=== PATIENT | female | born 1955 | race African-American/Black ===

== ENCOUNTER 2018-01-06 15:08 | Emergency (ER) | payer MEDICAID ==
[~2018-01-06] VITALS: Ht 160 cm; Wt 104.5 kg
[~2018-01-06 15:08] MED LIST: ASPI-556 PO; CARV12 PO; LISI-662 PO; SIMV-260 PO
[2018-01-06] MEDS ORDERED: ATOR40TA28 PO (15:35)
[2018-01-06] MEDS ORDERED: CARV3 PO (15:35)
[2018-01-06] MEDS ORDERED: FURO20 PO (15:35)
[2018-01-06] MEDS ORDERED: VITAD1000 PO (15:35)
[2018-01-06] MEDS ORDERED: IPRATROPIUM BROMIDE 0.5 MG/2.5 ML NEB SOLUTION NEB ONE (16:00)
[2018-01-06] MEDS ORDERED: ALBUTEROL SULFATE 5 MG/ML 20 ML NEB SOLN [BULK] NEB ONE (16:00)
[2018-01-06 16:15] LABS: BASOPHILS % (AUTO) 0.8 % (0.0-2.0); HEMATOCRIT 38.8 % (36-46); LYMPHOCYTES % (AUTO) 45.4 % (22.0-44.0); MEAN CORPUSCULAR HEMOGLOBIN 28.9 pg (26.0-34.0); MEAN CORPUSCULAR HGB CONC 33.5 G/dL (31.0-37.0); MEAN CORPUSCULAR VOLUME 86 fL (80-100); MONOCYTES # (AUTO) 0.5 K/uL (0.1-1.0); MONOCYTES % (AUTO) 11.5 % (2.0-9.0); NEUTROPHILS # (AUTO) 0.9 K/uL (1.8-7.7); NEUTROPHILS % (AUTO) 20.9 % (40.0-70.0); PLATELET COUNT (AUTO) 262 K/uL (150-450); RED CELL DISTRIBUTION WIDTH 14.7 % (11.5-14.5)
[2018-01-06] MEDS ORDERED: DEXAMETHASONE SOD PHOS 4 MG/ML 5 ML VIAL IM ONE (16:15)
[2018-01-06] MEDS ORDERED: DEXAMETHASONE SOD PHOS 4 MG/ML 5 ML VIAL IVP ONE (16:15)
[2018-01-06 16:20] LABS: EOSINOPHILS % (AUTO) 21.4 % (1.0-6.0)
[2018-01-06 16:28] LABS: CALCIUM, TOTAL 8.6 mg/dL (8.8-10.5); CREATININE 1.15 mg/dL (0.60-1.30); POTASSIUM 3.7 mmol/L (3.5-5.1)
[2018-01-06 16:34] LABS: ALBUMIN 3.5 g/dL (3.4-5.0); BILIRUBIN,TOTAL 0.2 mg/dL (0.1-1.0); TOTAL PROTEIN, SERUM 7.1 g/dL (6.4-8.2)
[2018-01-06] MEDS ORDERED: ALBUTEROL SULFATE HFA 90 MCG/PUFF 8 GM INHALER IH ONE (17:00)
[2018-01-06 17:35] VITALS: BP 129/70
== END 2018-01-06 18:34 | disposition home or self-care (01) ==
LOC: EMS 15:09
DX: J44.1 Chronic obstructive pulmonary disease with (acute) exacerbation (principal); I10 Essential (primary) hypertension; E78.00 Pure hypercholesterolemia, unspecified; I25.2 Old myocardial infarction; I25.10 Atherosclerotic heart disease of native coronary artery without angina pectoris; F17.210 Nicotine dependence, cigarettes, uncomplicated
CPT/HCPCS: 36415; 71046; 80053; 83880; 84484; 85025; 93005; 94644; 96374; 99285; J1100; J7611; J3535

== ENCOUNTER 2018-03-16 18:04 | Emergency (ER) | payer MEDICAID ==
[~2018-03-16] VITALS: Ht 160 cm; Wt 102.7 kg
[~2018-03-16 18:04] MED LIST changes: +ATOR40TA28 PO; -CARV12 PO; +CARV3 PO; +FURO20 PO; -SIMV-260 PO; +VITAD1000 PO
[2018-03-16 19:07] LABS: BASOPHILS % (AUTO) 1.1 % (0.0-2.0); EOSINOPHILS % (AUTO) 2.6 % (1.0-6.0); HEMATOCRIT 37.9 % (36-46); HEMOGLOBIN 12.7 g/dL (12.0-16.0); LYMPHOCYTES # (AUTO) 1.2 K/uL (1.0-4.8); LYMPHOCYTES % (AUTO) 15.4 % (22.0-44.0); MEAN CORPUSCULAR HEMOGLOBIN 28.9 pg (26.0-34.0); MEAN CORPUSCULAR HGB CONC 33.5 G/dL (31.0-37.0); MEAN CORPUSCULAR VOLUME 86 fL (80-100); MONOCYTES # (AUTO) 0.4 K/uL (0.1-1.0); MONOCYTES % (AUTO) 5.2 % (2.0-9.0); NEUTROPHILS # (AUTO) 5.9 K/uL (1.8-7.7); NEUTROPHILS % (AUTO) 75.7 % (40.0-70.0); PLATELET COUNT (AUTO) 280 K/uL (150-450); RED CELL DISTRIBUTION WIDTH 14.9 % (11.5-14.5)
[2018-03-16 19:14] LABS: APPEARANCE,URINE CLEAR (CLEAR); BILIRUBIN,URINE NEGATIVE (NEGATIVE); GLUCOSE, URINE (UA) NEGATIVE (NEGATIVE); KETONES,URINE 15 mg/dL (NEGATIVE); LEUKOCYTE ESTERASE ,URINE NEGATIVE (NEGATIVE); NITRATE,URINE NEGATIVE (NEGATIVE); OCCULT BLOOD,URINE NEGATIVE (NEGATIVE); PH,URINE 6.5 (5.0-8.0); PROTEIN,URINE TRACE (NEGATIVE)
[2018-03-16 19:16] LABS: ANION GAP 10 mmol/L (8-16); CALCIUM, TOTAL 8.8 mg/dL (8.8-10.5); CARBON DIOXIDE 27 mmol/L (22-29); CHLORIDE 103 mmol/L (98-107); GLOMERULAR FILTR. RATE CALC > 60 mL/min (>60); GLUCOSE,RANDOM 128 mg/dL (70-110); POTASSIUM 3.5 mmol/L (3.5-5.1); SODIUM SERUM 140 mmol/L (136-145); UREA NITROGEN, BLOOD 18 mg/dL (7-18)
[2018-03-16 19:22] LABS: ALANINE AMINOTRANSFERASE 26 U/L (12-78); ALBUMIN 3.8 g/dL (3.4-5.0); ALKALINE PHOSPHATASE 116 U/L (46-116); ASPARTATE AMINOTRANSFERASE 22 U/L (15-37); BILIRUBIN,TOTAL 0.3 mg/dL (0.1-1.0); LIPASE 114 U/L (73-393); TOTAL PROTEIN, SERUM 7.5 g/dL (6.4-8.2)
[2018-03-16] MEDS ORDERED: MORPHINE SULFATE 4 MG/ML SYRINGE IVP ONE ×2 (20:45→23:15)
[2018-03-16] MEDS ORDERED: KETOROLAC TROMETHAMINE 30 MG/ML VIAL IVP ONE (20:45)
[2018-03-16] MEDS ORDERED: BARIUM SULFATE 0.1% SUSPENSION 450 ML BOTTLE PO ONE (20:45)
[2018-03-16] MEDS ORDERED: ONDANSETRON HCL 4 MG/2 ML VIAL IVP ONE (20:45)
[2018-03-16] MEDS ORDERED: IOVERSOL 350 MG/ML 150 ML VIAL ONE (21:38)
[2018-03-16] MEDS ORDERED: SODIUM CHLORIDE 0.9% 100 ML ONE (21:39)
[2018-03-16] MEDS ORDERED: HEPARIN SODIUM 25000 UNITS/D5W 250 ML IV PRN (23:22)
[2018-03-16] MEDS ORDERED: HEPARIN SODIUM,PORCINE 5,000 UNITS/ML VIAL IVP ONE (23:30)
[2018-03-16] MEDS ORDERED: HEPARIN SODIUM,PORCINE 5,000 UNITS/ML VIAL IVP PRN ×2 (23:30)
[2018-03-16 23:45] LABS: BASOPHILS % (AUTO) 1.2 % (0.0-2.0); EOSINOPHILS % (AUTO) 0.3 % (1.0-6.0); HEMATOCRIT 36.9 % (36-46); HEMOGLOBIN 12.7 g/dL (12.0-16.0); LYMPHOCYTES # (AUTO) 1.1 K/uL (1.0-4.8); LYMPHOCYTES % (AUTO) 15.1 % (22.0-44.0); MEAN CORPUSCULAR HEMOGLOBIN 29.3 pg (26.0-34.0); MEAN CORPUSCULAR HGB CONC 34.4 G/dL (31.0-37.0); MEAN CORPUSCULAR VOLUME 85 fL (80-100); MONOCYTES # (AUTO) 0.3 K/uL (0.1-1.0); MONOCYTES % (AUTO) 4.1 % (2.0-9.0); NEUTROPHILS # (AUTO) 5.9 K/uL (1.8-7.7); NEUTROPHILS % (AUTO) 79.3 % (40.0-70.0); PLATELET COUNT (AUTO) 278 K/uL (150-450); RED BLOOD CELL COUNT(AUTO) 4.35 MIL/uL (4.00-5.20); RED CELL DISTRIBUTION WIDTH 14.8 % (11.5-14.5)
[2018-03-16 23:57] LABS: INR 1.6 (0.9-1.1); PROTHROMBIN TIME 16.7 SEC (9.4-11.6)
[2018-03-17 01:05] VITALS: BP 143/79
== END 2018-03-17 02:55 | disposition short-term general hospital (02) ==
LOC: EMS 18:05
DX: R10.9 Unspecified abdominal pain (principal); N28.0 Ischemia and infarction of kidney; F17.210 Nicotine dependence, cigarettes, uncomplicated; I10 Essential (primary) hypertension; I25.2 Old myocardial infarction; R19.7 Diarrhea, unspecified; R11.2 Nausea with vomiting, unspecified; E78.00 Pure hypercholesterolemia, unspecified; Z79.899 Other long term (current) drug therapy; Z79.82 Long term (current) use of aspirin
CPT/HCPCS: 36415; 74177; 80053; 81003; 83690; 84484; 85025; 85610; 85730; 93005; 96365; 96374; 96375; 96376; 99291; J1644 ×2; J1885; J2270; J2405; J7050; Q9967; Z7610

== ENCOUNTER → 2018-11-05 | Outpatient (CLI) | payer MEDICAID | END | disposition home or self-care (01) | LOC: RADPV 09:10 | PROVIDERS: ATTEND Hospitalist | DX: N28.0 Ischemia and infarction of kidney (principal); J44.9 Chronic obstructive pulmonary disease, unspecified; I10 Essential (primary) hypertension; E78.00 Pure hypercholesterolemia, unspecified; Z79.899 Other long term (current) drug therapy | CPT/HCPCS: 76770 ==

== ENCOUNTER 2021-01-09 02:14 | Emergency (ER) | payer MEDICAID ==
[~2021-01-09] VITALS: Ht 160 cm; Wt 90.9 kg
[~2021-01-09 02:14] MED LIST changes: +AMLO2.5T96 PO; -ATOR40TA28 PO; +ATOR40TA71 PO; +BECL10.62 IH; +CHOL100044 PO; +IPRA4AER IH; +ISOS30TA92 PO; -LISI-662 PO; +MONT-35 PO; +OMEG10005 PO; +OMEP20 PO; -VITAD1000 PO
[2021-01-09] MEDS ORDERED: MORPHINE SULFATE 4 MG/ML SYRINGE IVP ONE ×2 (02:45→05:45)
[2021-01-09] MEDS ORDERED: CYCLOBENZAPRINE HCL 10 MG TABLET PO ONE (02:45)
[2021-01-09 05:35] VITALS: BP 162/83
[2021-01-09] MEDS ORDERED: MORPHINE SULFATE 2 MG/ML SYRINGE IVP ONE (05:45)
== END 2021-01-09 05:55 | disposition home or self-care (01) ==
LOC: EMS 02:17
DX: M54.41 Lumbago with sciatica, right side (principal); I25.10 Atherosclerotic heart disease of native coronary artery without angina pectoris; I11.0 Hypertensive heart disease with heart failure; I50.9 Heart failure, unspecified; J44.9 Chronic obstructive pulmonary disease, unspecified; E78.00 Pure hypercholesterolemia, unspecified; I25.2 Old myocardial infarction; F17.210 Nicotine dependence, cigarettes, uncomplicated; Z90.89 Acquired absence of other organs; Z90.710 Acquired absence of both cervix and uterus; Z79.899 Other long term (current) drug therapy; Z79.82 Long term (current) use of aspirin
CPT/HCPCS: 72100; 96374; 96376; 99284; J2270 ×2

== ENCOUNTER 2021-08-02 17:48 | Emergency (ER) | payer MEDICARE, MEDICAID ==
[~2021-08-02] VITALS: Ht 160 cm; Wt 93.2 kg
[~2021-08-02 17:48] MED LIST changes: +CHOL-35 PO; -CHOL100044 PO
[2021-08-02] MEDS ORDERED: TraMADol HCL 50 MG TABLET PO ONE (18:45)
[2021-08-02 21:21] VITALS: BP 144/79
== END 2021-08-02 21:34 | disposition home or self-care (01) ==
LOC: EMS 17:48
DX: M79.604 Pain in right leg (principal); M79.89 Other specified soft tissue disorders; I25.10 Atherosclerotic heart disease of native coronary artery without angina pectoris; I11.0 Hypertensive heart disease with heart failure; I50.9 Heart failure, unspecified; J44.9 Chronic obstructive pulmonary disease, unspecified; E78.00 Pure hypercholesterolemia, unspecified; F17.210 Nicotine dependence, cigarettes, uncomplicated; Z90.710 Acquired absence of both cervix and uterus; Z90.89 Acquired absence of other organs; Z79.899 Other long term (current) drug therapy; Z79.82 Long term (current) use of aspirin
CPT/HCPCS: 93971; 99284; 73590-TC; 73610-TC; Z7502; Z7610

== ENCOUNTER 2021-09-14 16:20 | Emergency (ER) | payer MEDICARE, MEDICAID ==
[~2021-09-14] VITALS: Ht 160 cm; Wt 88.6 kg
[2021-09-14 18:46] LABS: COVID AG,FIA SOURCE NASOPHARYNGEAL
[2021-09-14 18:47] VITALS: BP 157/76
[2021-09-14 19:08] LABS: INFLUENZA TYPE A NEGATIVE FOR TYPE A (NEGATIVE); INFLUENZA TYPE B NEGATIVE FOR TYPE B (NEGATIVE)
[2021-09-14] MEDS: ALBUTEROL SULFATE HFA 90 MCG/PUFF 8 GM INHALER IH ONE (20:11)
== END 2021-09-14 20:22 | disposition home or self-care (01) ==
LOC: EMS 16:34
DX: J40 Bronchitis, not specified as acute or chronic (principal); I11.0 Hypertensive heart disease with heart failure; I50.9 Heart failure, unspecified; E78.00 Pure hypercholesterolemia, unspecified; I25.10 Atherosclerotic heart disease of native coronary artery without angina pectoris; I25.2 Old myocardial infarction; F17.210 Nicotine dependence, cigarettes, uncomplicated; Z79.899 Other long term (current) drug therapy; Z20.822 Contact with and (suspected) exposure to COVID-19
CPT/HCPCS: 71045; 87426; 87804; 94640; 99284; U0003; J3535

== ENCOUNTER 2023-10-10 13:42 | Emergency (ER) | payer OTHER ==
[~2023-10-10] VITALS: Ht 160 cm; Wt 90.9 kg
[~2023-10-10 13:42] MED LIST changes: -CHOL-35 PO; +CHOL25TA4 PO
[2023-10-10 13:48] VITALS: TEMP 98.6
[2023-10-10] MEDS ORDERED: ACETAMINOPHEN 500 MG TABLET PO ONE (15:00)
[2023-10-10] MEDS ORDERED: POLYMYXIN B/TRIMETHOPRIM 10 ML OPHTHALMIC SOLUTION OD ONE (15:00)
[2023-10-10 15:12] LABS: BASOPHILS % (AUTO) 1.3 % (0.0-2.0); EOSINOPHILS % (AUTO) 3.8 % (1.0-6.0); HEMATOCRIT 35.6 % (36-46); HEMOGLOBIN 11.9 g/dL (12.0-16.0); LYMPHOCYTES % (AUTO) 32.1 % (22.0-44.0); MEAN CORPUSCULAR HEMOGLOBIN 29.1 pg (26.0-34.0); MEAN CORPUSCULAR HGB CONC 33.5 G/dL (31.0-37.0); MEAN CORPUSCULAR VOLUME 87 fL (80-100); MONOCYTES # (AUTO) 0.6 K/uL (0.1-1.0); MONOCYTES % (AUTO) 10.5 % (2.0-9.0); NEUTROPHILS # (AUTO) 3.2 K/uL (1.8-7.7); NEUTROPHILS % (AUTO) 52.3 % (40.0-70.0); PLATELET COUNT (AUTO) 349 K/uL (150-450); RED BLOOD CELL COUNT(AUTO) 4.09 MIL/uL (4.00-5.20); RED CELL DISTRIBUTION WIDTH 16.1 % (11.5-14.5); WHITE BLOOD COUNT (AUTO) 6.1 K/uL (4.5-11.0)
[2023-10-10 15:22] LABS: ANION GAP 10 mmol/L (8-16); CALCIUM, TOTAL 9.2 mg/dL (8.8-10.5); CARBON DIOXIDE 29 mmol/L (22-29); CHLORIDE 105 mmol/L (98-107); CREATININE 1.08 mg/dL (0.60-1.30); GLOMERULAR FILTR. RATE CALC > 60 mL/min (>60); GLUCOSE,RANDOM 94 mg/dL (70-110); POTASSIUM 3.6 mmol/L (3.5-5.1); SODIUM SERUM 144 mmol/L (136-145); UREA NITROGEN, BLOOD 20 mg/dL (7-18)
[2023-10-10 15:25] LABS: APPEARANCE,URINE TURBID (CLEAR); BILIRUBIN,URINE NEGATIVE (NEGATIVE); COLOR,URINE YELLOW (YELLOW); GLUCOSE, URINE (UA) NEGATIVE (NEGATIVE); KETONES,URINE NEGATIVE (NEGATIVE); LEUKOCYTE ESTERASE ,URINE LARGE (NEGATIVE); NITRATE,URINE NEGATIVE (NEGATIVE); OCCULT BLOOD,URINE SMALL (NEGATIVE); PROTEIN,URINE 100-200,SEE CONFIRM mg/dL (NEGATIVE); SPECIFIC GRAVITIY, URINE 1.026 (1.003-1.030); UROBILINOGEN,URINE <=1.0 mg/dL (<=1.0)
[2023-10-10 15:29] LABS: BACTERIA,URINE Few /HPF (None Seen); SQUAMOUS EPITHELIAL CELL,UR Few /LPF (None Seen); SULFOSALICYLIC ACID,URINE 2+ (Negative); WBC,URINE 51-100 /HPF (0-5)
[2023-10-10 15:29] LABS: ALANINE AMINOTRANSFERASE 18 U/L (12-78); ALBUMIN 3.6 g/dL (3.4-5.0); ALKALINE PHOSPHATASE 107 U/L (46-116); ASPARTATE AMINOTRANSFERASE 17 U/L (15-37); BILIRUBIN,TOTAL 0.2 mg/dL (0.1-1.0)
[2023-10-10] MEDS ORDERED: CEPH-558 PO (15:35)
[2023-10-10] MEDS ORDERED: ACET-3385 PO (15:35)
[2023-10-10] MEDS ORDERED: CEPHALEXIN MONOHYDRATE 500 MG CAPSULE PO ONE (15:45)
[2023-10-10 15:56] VITALS: BP 141/70; PULSE 66; RESP 16
== END 2023-10-10 16:27 | disposition home or self-care (01) ==
LOC: EMS 13:42
DX: N12 Tubulo-interstitial nephritis, not specified as acute or chronic (principal); H10.9 Unspecified conjunctivitis; J44.9 Chronic obstructive pulmonary disease, unspecified; E78.00 Pure hypercholesterolemia, unspecified; F17.210 Nicotine dependence, cigarettes, uncomplicated; I25.10 Atherosclerotic heart disease of native coronary artery without angina pectoris; I11.0 Hypertensive heart disease with heart failure; Z90.49 Acquired absence of other specified parts of digestive tract; Z90.710 Acquired absence of both cervix and uterus; Z98.890 Other specified postprocedural states
CPT/HCPCS: 80053; 81001; 81002; 85025; 87086; 87186; 99284

== ENCOUNTER 2024-07-18 05:45 | Day surgery (SDC) | payer MEDICARE, OTHER ==
[~2024-07-18] VITALS: Ht 162.6 cm; Wt 90.9 kg
[2024-07-18] VITALS (11 sets, daily range): BP systolic 110–174; BP diastolic 63–78; PULSE 44–64
[~2024-07-18 05:45] MED LIST changes: +ACET-3862 PO; -AMLO2.5T96 PO; +AMLO5TAB66 PO; +ASPI-1198 PO; -ASPI-556 PO; -ATOR40TA71 PO; -BECL10.62 IH; -CARV3 PO; +CHOL200074 PO; -CHOL25TA4 PO; +EZET10TA57 PO; -FURO20 PO; +GABA-1181 PO; -IPRA4AER IH; -ISOS30TA92 PO; +LOSA-382 PO; +METO25TA6 PO; -MONT-35 PO; +NITR0.4T50 SL; +NITR0.4T52 SL; -OMEG10005 PO; -OMEP20 PO; +SIMV-43 PO; +SODIUM CHLORIDE 0.9% 1,000 ML ONE; +TRAZ-252 PO
[2024-07-18 06:13] LABS: BASOPHILS % (AUTO) 0.9 % (0.0-2.0); EOSINOPHILS % (AUTO) 2.6 % (1.0-6.0); HEMATOCRIT 41.9 % (36-46); HEMOGLOBIN 13.8 g/dL (12.0-16.0); LYMPHOCYTES # (AUTO) 2.1 K/uL (1.0-4.8); LYMPHOCYTES % (AUTO) 29.7 % (22.0-44.0); MEAN CORPUSCULAR HEMOGLOBIN 29.3 pg (26.0-34.0); MEAN CORPUSCULAR HGB CONC 32.9 G/dL (31.0-37.0); MEAN CORPUSCULAR VOLUME 89 fL (80-100); MONOCYTES # (AUTO) 0.6 K/uL (0.1-1.0); MONOCYTES % (AUTO) 8.5 % (2.0-9.0); NEUTROPHILS # (AUTO) 4.2 K/uL (1.8-7.7); NEUTROPHILS % (AUTO) 58.3 % (40.0-70.0); PLATELET COUNT (AUTO) 310 K/uL (150-450); RED BLOOD CELL COUNT(AUTO) 4.72 MIL/uL (4.00-5.20); RED CELL DISTRIBUTION WIDTH 16.3 % (11.5-14.5); WHITE BLOOD COUNT (AUTO) 7.2 K/uL (4.5-11.0)
[2024-07-18 06:25] LABS: CREATININE 1.12 mg/dL (0.60-1.30); POTASSIUM 3.9 mmol/L (3.5-5.1)
[2024-07-18 06:26] LABS: CALCIUM, TOTAL 9.6 mg/dL (8.8-10.5)
[2024-07-18 06:30] LABS: PROTHROMBIN TIME 10.4 SEC (9.4-11.6)
[2024-07-18 06:31] LABS: ALBUMIN 3.8 g/dL (3.4-5.0); BILIRUBIN,TOTAL 0.4 mg/dL (0.1-1.0); TOTAL PROTEIN, SERUM 7.7 g/dL (6.4-8.2)
[2024-07-18] MEDS: SODIUM CHLORIDE 0.9% 1,000 ML IV ONE (06:39)
[2024-07-18] MEDS ORDERED: VERAPAMIL HCL 2.5 MG/ML 2 ML VIAL ONE (06:59)
[2024-07-18] MEDS ORDERED: IOHEXOL 300 MG/ML 100 ML VIAL ONE (06:59)
[2024-07-18] MEDS ORDERED: LIDOCAINE/PF 1% 30 ML VIAL ONE (06:59)
[2024-07-18] MEDS ORDERED: HEPARIN SODIUM 1000 UNITS/NS 1,000 ML ONE (06:59)
[2024-07-18] MEDS ORDERED: NITROGLYCERIN 50 MG/D5% WATER 250 ML ONE (06:59)
[2024-07-18] MEDS ORDERED: SODIUM BICARBONATE 50 MEQ/50 ML VIAL ONE (06:59)
[2024-07-18] MEDS ORDERED: FentaNYL CITRATE PF 100 MCG/2 ML VIAL ONE (07:49)
[2024-07-18] MEDS ORDERED: MIDAZOLAM HCL 2 MG/2 ML VIAL ONE (07:49)
[2024-07-18] MEDS: HEPARIN SODIUM,PORCINE 1,000 UNITS/ML 10 ML VIAL IARTER ONE (08:09)
[2024-07-18] MEDS: HEPARIN SODIUM 1000 UNITS/NS 1,000 ML IARTER ONE (08:09)
[2024-07-18] MEDS: NITROGLYCERIN/D5W 50 MG/250 ML IV BOTTLE IARTER ONE (08:10)
[2024-07-18] MEDS: IOHEXOL 300 MG/ML 100 ML VIAL IARTER ONE (08:10)
[2024-07-18] MEDS: FentaNYL CITRATE PF 100 MCG/2 ML VIAL IVP ONE ×2 (08:11→08:18)
[2024-07-18] MEDS: MIDAZOLAM HCL 2 MG/2 ML VIAL IVP ONE ×2 (08:11→08:18)
[2024-07-18] MEDS: LIDOCAINE 1% 30 ML/SOD BICARB 8.4% 4 ML SQ ONE (08:12)
== END 2024-07-18 12:30 | disposition home or self-care (01) ==
LOC: CATHLAB 05:45
PROVIDERS: ATTEND Internal Medicine
DX: I25.119 Atherosclerotic heart disease of native coronary artery with unspecified angina pectoris (principal); R94.31 Abnormal electrocardiogram [ECG] [EKG]; I10 Essential (primary) hypertension; E11.9 Type 2 diabetes mellitus without complications; J44.9 Chronic obstructive pulmonary disease, unspecified; I25.2 Old myocardial infarction; Z86.73 Personal history of transient ischemic attack (TIA), and cerebral infarction without residual deficits; Z79.82 Long term (current) use of aspirin; Z79.899 Other long term (current) drug therapy; Z90.49 Acquired absence of other specified parts of digestive tract; Z90.710 Acquired absence of both cervix and uterus; Z98.818 Other dental procedure status; Z98.890 Other specified postprocedural states; Z82.49 Family history of ischemic heart disease and other diseases of the circulatory system
CPT/HCPCS: 93458; 80053; 85025; 85610; 85730; 36415; 99152; 93005; J3010; J1644; J3490 ×4; J2250; J7030; Q9967

== ENCOUNTER 2025-07-26 13:42 | Inpatient (IN) | payer MEDICARE, OTHER ==
[~2025-07-26] VITALS: Ht 160 cm; Wt 99.6 kg
[~2025-07-26 13:42] MED LIST changes: -NITR0.4T52 SL; -SODIUM CHLORIDE 0.9% 1,000 ML ONE
[2025-07-26] MEDS ORDERED: FLUT1BLS3 IH (14:02)
[2025-07-26] MEDS ORDERED: ROSU20TA98 PO (14:02)
[2025-07-26] MEDS ORDERED: CHOL25TA4 PO (14:02)
[2025-07-26] MEDS ORDERED: LOSA-381 PO (14:02)
[2025-07-26 14:24] LABS: PLATELET COUNT (AUTO) 246 K/uL (150-450); RED BLOOD CELL COUNT(AUTO) 4.69 MIL/uL (4.00-5.20); RED CELL DISTRIBUTION WIDTH 15.6 % (11.5-14.5); WHITE BLOOD COUNT (AUTO) 6.3 K/uL (4.5-11.0)
[2025-07-26 14:37] LABS: CALCIUM, TOTAL 9.2 mg/dL (8.8-10.5); CREATININE 1.83 mg/dL (0.60-1.30); GLOMERULAR FILTR. RATE CALC 33 mL/min (>60); GLUCOSE,RANDOM 130 mg/dL (70-110); SODIUM SERUM 139 mmol/L (136-145); UREA NITROGEN, BLOOD 20 mg/dL (7-18)
[2025-07-26 14:45] LABS: TROPONIN I-HIGH SENSITIVITY 21 ng/L (<51)
[2025-07-26 15:41] LABS: APPEARANCE,URINE CLEAR (CLEAR); GLUCOSE, URINE (UA) NEGATIVE (NEGATIVE); LEUKOCYTE ESTERASE ,URINE SMALL (NEGATIVE); NITRATE,URINE NEGATIVE (NEGATIVE); OCCULT BLOOD,URINE NEGATIVE (NEGATIVE); SPECIFIC GRAVITIY, URINE 1.012 (1.003-1.030)
[2025-07-26] MEDS: SODIUM CHLORIDE 0.9% 1,000 ML IV ONE ×2 (15:45→23:48)
[2025-07-26 15:46] LABS: SQUAMOUS EPITHELIAL CELL,UR Few /LPF (None Seen)
[2025-07-26 15:47] LABS: ASPARTATE AMINOTRANSFERASE 24.0 U/L (15-37); TOTAL PROTEIN, SERUM 7.3 g/dL (6.4-8.2)
[2025-07-26] MEDS: MORPHINE SULFATE 2 MG/ML SYRINGE IVP ONE (15:47)
[2025-07-26] MEDS: CIPROFLOXACIN 400 MG/D5% WATER 200 ML IV ONE (18:12)
[2025-07-26] MEDS: MetroNIDAZOLE 500 MG/NACL 100 ML IV ONE (18:12)
[2025-07-26 18:26] LABS: LACTIC ACID 0.9 mmol/L (0.4-2.0)
[2025-07-26] MEDS ORDERED: BISACODYL 10 MG RECTAL RECTAL SUPPOSITORY PR PRN (20:45)
[2025-07-26] MEDS ORDERED: MAGNESIUM HYDROXIDE SUSPENSION 30 ML UDCUP PO PRN (20:45)
[2025-07-26] MEDS ORDERED: ACETAMINOPHEN 325 MG TABLET PO PRN (20:45)
[2025-07-26] MEDS ORDERED: ONDANSETRON HCL 4 MG/2 ML VIAL IVP PRN (20:45)
[2025-07-26] MEDS: DOCUSATE SODIUM 100 MG CAPSULE PO SCH (21:00)
[2025-07-26 21:34] VITALS: BP 157/74; PULSE 53; RESP 19; TEMP 98.4; O2SAT 95
[2025-07-26] MEDS: MORPHINE SULFATE 4 MG/ML SYRINGE IVP PRN (21:50)
[2025-07-26] MEDS: HYDROCODONE/ACETAMINOPHEN 5-325 MG TABLET PO PRN (23:48)
[2025-07-26 23:49] VITALS: PULSE 52; RESP 20; TEMP 98.2; O2SAT 97
[2025-07-26] MEDS: HEPARIN SODIUM,PORCINE 5,000 UNITS/ML VIAL SQ SCH (23:49)
[2025-07-27] VITALS (12 sets, daily range): BP systolic 117–180; BP diastolic 55–82; PULSE 46–77; RESP 16–19; TEMP 98–99.3; O2SAT 92–100
[2025-07-27] MEDS: PIPERACILLIN SODIUM/TAZOBACTAM 2.25 GM in DEXTROSE 5%-WATER 50 ML IV SCH (02:33)
[2025-07-27] MEDS: METOPROLOL TARTRATE 25 MG TABLET PO SCH (09:00)
[2025-07-27] MEDS ORDERED: MISC MED-CONVERTED FROM AMBULATORY (Fluticasone/Umeclidin/Vilanter (Trelegy Ellipta 100-62 IH SCH (09:00)
[2025-07-27] MEDS: ASPIRIN 81 MG CHEWABLE TABLET PO SCH (09:04)
[2025-07-27] MEDS: CHOLECALCIFEROL (VIT D3) 1,000 UNITS [25 MCG] TABLET PO SCH (09:04)
[2025-07-27] MEDS: PANTOPRAZOLE SODIUM 40 MG DR TABLET PO SCH (09:04)
[2025-07-27] MEDS: EZETIMIBE 10 MG TABLET PO SCH (09:51)
[2025-07-27 10:11] LABS: PLATELET COUNT (AUTO) 221 K/uL (150-450); RED BLOOD CELL COUNT(AUTO) 4.93 MIL/uL (4.00-5.20); RED CELL DISTRIBUTION WIDTH 15.6 % (11.5-14.5); WHITE BLOOD COUNT (AUTO) 11.5 K/uL (4.5-11.0)
[2025-07-27] MEDS ORDERED: LOSA-382 PO (12:11)
[2025-07-27 16:03] LABS: CALCIUM, TOTAL 8.7 mg/dL (8.8-10.5); CREATININE 2.23 mg/dL (0.60-1.30); GLOMERULAR FILTR. RATE CALC 26.0 mL/min (>60); GLUCOSE,RANDOM 108.0 mg/dL (70-110); SODIUM SERUM 141.0 mmol/L (136-145); UREA NITROGEN, BLOOD 17.0 mg/dL (7-18)
[2025-07-27] MEDS: DEXTROSE 5%-0.45% SODIUM CHL 1,000 ML IV ONE (17:26)
[2025-07-27] MEDS: SIMVASTATIN 20 MG TABLET PO SCH (20:47)
[2025-07-28] VITALS (8 sets, daily range): BP systolic 123–153; BP diastolic 51–85; PULSE 71–81; RESP 16–19; TEMP 98–99.9; O2SAT 95–98
[2025-07-28] MEDS: METOPROLOL TARTRATE 25 MG TABLET PO SCH (08:16)
[2025-07-28 08:34] LABS: PLATELET COUNT (AUTO) 223 K/uL (150-450); RED BLOOD CELL COUNT(AUTO) 4.74 MIL/uL (4.00-5.20); RED CELL DISTRIBUTION WIDTH 15.6 % (11.5-14.5); WHITE BLOOD COUNT (AUTO) 17.5 K/uL (4.5-11.0)
[2025-07-28 08:40] LABS: CALCIUM, TOTAL 8.7 mg/dL (8.8-10.5); CREATININE 2.58 mg/dL (0.60-1.30); GLOMERULAR FILTR. RATE CALC 22.0 mL/min (>60); GLUCOSE,RANDOM 113.0 mg/dL (70-110); SODIUM SERUM 137.0 mmol/L (136-145); UREA NITROGEN, BLOOD 19.0 mg/dL (7-18)
[2025-07-28] MEDS: SODIUM CHLORIDE 0.9% 1,000 ML IV ONE (12:28)
[2025-07-28] MEDS: CLOPIDOGREL BISULFATE 75 MG TABLET PO SCH (18:28)
[2025-07-29 03:22] VITALS: BP 122/79; PULSE 71; RESP 18; TEMP 98.6; O2SAT 95
[2025-07-29 08:27] VITALS: BP 142/83; PULSE 79; RESP 18; TEMP 99.7; O2SAT 96
[2025-07-29 12:27] VITALS: BP 127/71; PULSE 69; RESP 18; TEMP 97.3; O2SAT 96
[2025-07-29 15:38] VITALS: BP 137/67; PULSE 68; RESP 19; TEMP 99.3; O2SAT 100
[2025-07-29] MEDS: DEXTROSE 5%-LACTATED RINGERS 1,000 ML IV ONE (15:57)
[2025-07-29] MEDS ORDERED: IOHEXOL 350 MG/ML 100 ML VIAL ONE (16:57)
[2025-07-29] MEDS ORDERED: SODIUM CHLORIDE 0.9% 100 ML ONE (16:57)
[2025-07-29] MEDS ORDERED: 0.9% SODIUM CHLORIDE 10 ML SYRINGE IVP ONE (16:58)
[2025-07-29 19:32] VITALS: BP 141/76; PULSE 69; RESP 19; TEMP 99.3; O2SAT 100
[2025-07-29] MEDS: ACETYLCYSTEINE 20% 200 MG/ML 4 ML ORAL SOLUTION PO SCH (21:25)
[2025-07-29 23:30] VITALS: BP 126/68; PULSE 67; RESP 18; TEMP 98.8; O2SAT 95
[2025-07-30 04:43] VITALS: BP 146/74; PULSE 52; RESP 18; TEMP 99; O2SAT 98
[2025-07-30 08:21] LABS: PLATELET COUNT (AUTO) 214 K/uL (150-450); RED BLOOD CELL COUNT(AUTO) 4.00 MIL/uL (4.00-5.20); RED CELL DISTRIBUTION WIDTH 15.0 % (11.5-14.5); WHITE BLOOD COUNT (AUTO) 12.2 K/uL (4.5-11.0)
[2025-07-30 08:32] LABS: CALCIUM, TOTAL 8.3 mg/dL (8.8-10.5); CREATININE 2.65 mg/dL (0.60-1.30); GLOMERULAR FILTR. RATE CALC 22.0 mL/min (>60); GLUCOSE,RANDOM 120.0 mg/dL (70-110); SODIUM SERUM 136.0 mmol/L (136-145); UREA NITROGEN, BLOOD 23.0 mg/dL (7-18)
[2025-07-30 08:33] VITALS: BP 135/70; PULSE 60; RESP 17; TEMP 98.8; O2SAT 97
[2025-07-30 08:36] LABS: ASPARTATE AMINOTRANSFERASE 40.0 U/L (15-37); TOTAL PROTEIN, SERUM 6.2 g/dL (6.4-8.2)
[2025-07-30] MEDS: APIXABAN 5 MG TABLET PO SCH (10:16)
[2025-07-30] MEDS: POTASSIUM CHLORIDE 20 MEQ ER TABLET PO ONE (10:49)
[2025-07-30 12:08] VITALS: BP 111/55; PULSE 52; RESP 16; TEMP 98.6; O2SAT 97
[2025-07-30] MEDS ORDERED: DEXTROSE 50%-WATER 25 GM/50 ML SYRINGE IVP PRN (13:00)
[2025-07-30 16:08] VITALS: BP 111/87; PULSE 48; RESP 18; TEMP 98.2; O2SAT 97
[2025-07-30] MEDS: INSULIN LISPRO 100 UNITS/ML SQ PRN (17:37)
[2025-07-30 19:00] LABS: GLUCOMETER DEV NAME(LOC) 5S.1E; GLUCOSE,POINT OF CARE 143 MG/DL (70-110)
[2025-07-30 21:00] VITALS: BP 137/58; PULSE 65; RESP 18; TEMP 98.8; O2SAT 98
[2025-07-30] MEDS: ZOLPIDEM TARTRATE 5 MG TABLET PO PRN (21:34)
[2025-07-30] MEDS: POTASSIUM CHLORIDE 10 MEQ ER TABLET PO ONE (22:59)
[2025-07-31 04:00] VITALS: BP 133/62; PULSE 68; RESP 18; TEMP 98.4; O2SAT 97
[2025-07-31 07:30] LABS: CALCIUM, TOTAL 8.7 mg/dL (8.8-10.5); CREATININE 2.92 mg/dL (0.60-1.30); GLOMERULAR FILTR. RATE CALC 19.0 mL/min (>60); GLUCOSE,RANDOM 114.0 mg/dL (70-110); SODIUM SERUM 139.0 mmol/L (136-145); UREA NITROGEN, BLOOD 22.0 mg/dL (7-18)
[2025-07-31 08:18] VITALS: BP 132/77; PULSE 69; RESP 17; TEMP 97.7; O2SAT 98
[2025-07-31] MEDS ORDERED: APIX5TAB PO (11:17)
[2025-07-31] MEDS ORDERED: AMLO-258 PO (11:17)
[2025-07-31] MEDS ORDERED: METO25 PO (11:21)
== END 2025-07-31 13:00 | disposition home or self-care (01) | DRG 391 ==
LOC: EMS 13:42 → EDH 16:29 → CMPBEDREQ 20:06 → 5S 21:32 → 4E 07-30 20:51
PROVIDERS: ADMIT Internal Medicine; ATTEND Internal Medicine
PROC: 05HD33Z Insertion of Infusion Device into Right Cephalic Vein, Percutaneous Approach (ICD-10-PCS; principal; 2025-07-29)
PROC: B54MZZA Ultrasonography of Right Upper Extremity Veins, Guidance (ICD-10-PCS; 2025-07-29)
DX: K57.32 Diverticulitis of large intestine without perforation or abscess without bleeding (principal); N17.0 Acute kidney failure with tubular necrosis; R65.11 Systemic inflammatory response syndrome (SIRS) of non-infectious origin with acute organ dysfunction; I13.0 Hypertensive heart and chronic kidney disease with heart failure and stage 1 through stage 4 chronic kidney disease, or unspecified chronic kidney disease; N18.4 Chronic kidney disease, stage 4 (severe); E11.8 Type 2 diabetes mellitus with unspecified complications; E66.9 Obesity, unspecified; J44.9 Chronic obstructive pulmonary disease, unspecified; E11.22 Type 2 diabetes mellitus with diabetic chronic kidney disease; E78.00 Pure hypercholesterolemia, unspecified; I25.10 Atherosclerotic heart disease of native coronary artery without angina pectoris; I25.2 Old myocardial infarction; Z90.710 Acquired absence of both cervix and uterus; Z90.49 Acquired absence of other specified parts of digestive tract; Z87.891 Personal history of nicotine dependence; Z68.38 Body mass index [BMI] 38.0-38.9, adult; Z79.82 Long term (current) use of aspirin; Z79.899 Other long term (current) drug therapy
CPT/HCPCS: 36245; 36569; 74175; 74176; 76770; 76937; 80048; 80053; 80076; 81001; 82962; 83605; 83690; 83970; 84484; 85025; 86038; 87040; 93005; 93306; 96361; 96365; 96375; 97112; 97116; 97162; 97530; 99285; G0378; J0360; J0744; J1171; J1644; J2270; J2543; J3490; J7030; J7050; J7060; 36415-L1; 36415-TC